=== PATIENT | female | born 1950 | race African-American/Black ===

== ENCOUNTER 2019-08-29 17:23 | Inpatient (IN) ==
[2019-08-29 19:02] LABS: Basophils % 0.6 % (0.0-0.8); Eosinophils % 0.5 % (0.00-10.9); Hematocrit 19.6 VOL% (35.7-47.0); Immature Granulocytes % 0.8 %; Immature Granulocytes Absolute 0.05 #; Lymphocytes % 16.6 % (21.3-54.2); Mean Corpuscular HGB Conc 29.1 GM/DL (32-36); Mean Corpuscular Volume 83.4 FL (87-102); Mean Platelet Volume 8.7 FL (9.6-12.0); Monocytes % 9.7 % (1.7-12.7); Neutrophils % 71.8 % (38.7-73.9); Platelet Count 396 T/CUMM (130-400); Red Blood Count 2.35 MC/CUMM (3.8-5.5); Red Cell Distribution Width 15.9 % (9.3-17.3); White Blood Count 6.2 T/CUMM (4-12)
[2019-08-29 19:06] LABS: Hemoglobin 5.7 GM/DL (12.0-16.0)
[2019-08-29 19:15] LABS: Alanine Aminotransferase 15 U/L (13-56); Albumin 3.7 G/DL (3.4-5.0); Alkaline Phosphatase 53 U/L (45-117); Aspartate Amino Transferase 13 U/L (0-37); Bilirubin,Total < 0.39 MG/DL (0.2-1.0); Blood Urea Nitrogen 13 MG/DL (7-18); Calcium 8.7 MG/DL (8.5-10.1); Estimated Glom Filtration Rate 80 ML/MIN; Glucose 158 MG/DL (74-106); Osmolality,Calculated 264.7 MOS/KG (273-304); Total Protein 7.2 G/DL (6.4-8.3)
[2019-08-29] MEDS ORDERED: NICOTINE 21 MG/24 HR PATCH TRANSDERM PRN (20:10)
[2019-08-29] MEDS ORDERED: ACETAMINOPHEN 325 MG TABLET PO PRN (20:10)
[2019-08-29] MEDS ORDERED: diphenhydrAMINE CAP 25 MG CAPSULE PO PRN (20:10)
[2019-08-29] MEDS ORDERED: traZODone 50 MG TABLET PO PRN (20:10)
[2019-08-29] MEDS ORDERED: ONDANSETRON 4 MG/2 ML VIAL IV PRN (20:10)
[2019-08-29] MEDS ORDERED: SODIUM CHLORIDE 0.9% 1,000 ML IV PRN (20:10)
[2019-08-29 20:36] LABS: Basophils % 0.6 % (0.0-0.8); Eosinophils % 0.5 % (0.00-10.9); Hematocrit 19.9 VOL% (35.7-47.0); Immature Granulocytes % 1.4 %; Immature Granulocytes Absolute 0.09 #; Lymphocytes # 1.1 10*3/uL (1.4-4.0); Lymphocytes % 17.1 % (21.3-54.2); Mean Corpuscular HGB Conc 29.1 GM/DL (32-36); Mean Corpuscular Volume 84.7 FL (87-102); Mean Platelet Volume 9.1 FL (9.6-12.0); Monocytes % 9.5 % (1.7-12.7); Neutrophils % 70.9 % (38.7-73.9); Platelet Count 425 T/CUMM (130-400); Red Blood Count 2.35 MC/CUMM (3.8-5.5); Red Cell Distribution Width 15.9 % (9.3-17.3); White Blood Count 6.4 T/CUMM (4-12)
[2019-08-29 20:38] LABS: Hemoglobin 5.8 GM/DL (12.0-16.0)
[2019-08-29 20:39] LABS: Folate 11.3 NG/ML (5.4-24.0); Vitamin B12 267 PG/ML (211-911)
[2019-08-29] MEDS ORDERED: IRON SUCROSE 300 MG in SODIUM CHLORIDE 0.9% 100 ML IV ONE (22:00)
[2019-08-29 22:12] LABS: Sedimentation Rate-Westergren 36 MM/HR (0-30)
[2019-08-29] MEDS: PANTOPRAZOLE 40 MG VIAL IV SCH (22:37)
[2019-08-29] MEDS: SODIUM CHLORIDE 0.9% 1,000 ML IV SCH (22:37)
[2019-08-30 05:32] LABS: Basophils % 0.7 % (0.0-0.8); Eosinophils % 0.7 % (0.00-10.9); Hematocrit 19.4 VOL% (35.7-47.0); Immature Granulocytes % 0.4 %; Immature Granulocytes Absolute 0.02 #; Lymphocytes # 1.1 10*3/uL (1.4-4.0); Lymphocytes % 19.4 % (21.3-54.2); Mean Corpuscular HGB Conc 29.4 GM/DL (32-36); Mean Corpuscular Volume 83.3 FL (87-102); Neutrophils % 65.8 % (38.7-73.9); Platelet Count 395 T/CUMM (130-400); Red Blood Count 2.33 MC/CUMM (3.8-5.5); Red Cell Distribution Width 15.7 % (9.3-17.3); White Blood Count 5.6 T/CUMM (4-12)
[2019-08-30 05:39] LABS: Hemoglobin 5.7 GM/DL (12.0-16.0)
[2019-08-30 08:23] LABS: Hematocrit 22.9 VOL% (35.7-47.0); Hemoglobin 7.1 GM/DL (12.0-16.0)
[2019-08-30 08:26] LABS: Hemoglobin A1 (Alkaline) 97.7 % (96.5-98.5); Hemoglobin A2 (Alkaline) 2.3 % (1.5-3.5)
[2019-08-30] MEDS: PANTOPRAZOLE 40 MG VIAL IV SCH ×2 (09:39→21:29)
[2019-08-30] MEDS: SODIUM CHLORIDE 0.9% 1,000 ML IV SCH ×2 (10:30→21:54)
[2019-08-30] MEDS ORDERED: clonazePAM 0.5 MG TABLET PO PRN (14:43)
[2019-08-30] MEDS ORDERED: DEXTROSE 50% 25 GM/50 ML VIAL IV PRN (14:43)
[2019-08-30] MEDS: amLODIPine 10 MG TABLET PO SCH (15:33)
[2019-08-30] MEDS: INSULIN REGULAR 100 UNIT/ML SUBCUT SCH ×2 (16:14→21:32)
[2019-08-30] MEDS: FERROUS SULFATE 325 MG TABLET PO SCH (16:37)
[2019-08-30] MEDS ORDERED: SIMVASTATIN 20 MG TABLET PO SCH (21:00)
[2019-08-30] MEDS: lisinopriL 20 MG TABLET PO SCH (21:28)
[2019-08-30] MEDS: DOXAZOSIN 4 MG TABLET PO SCH (21:29)
[2019-08-30] MEDS: ASCORBIC ACID 500 MG TABLET PO SCH (21:42)
[2019-08-31] MEDS: SODIUM CHLORIDE 0.9% 1,000 ML IV SCH ×2 (02:27→09:11)
[2019-08-31] MEDS: INSULIN REGULAR 100 UNIT/ML SUBCUT SCH ×3 (07:32→17:02)
[2019-08-31] MEDS: lisinopriL 20 MG TABLET PO SCH (09:00)
[2019-08-31] MEDS: DOXAZOSIN 4 MG TABLET PO SCH (09:00)
[2019-08-31] MEDS: PANTOPRAZOLE 40 MG VIAL IV SCH (09:01)
[2019-08-31] MEDS: amLODIPine 10 MG TABLET PO SCH (09:01)
[2019-08-31] MEDS: FERROUS SULFATE 325 MG TABLET PO SCH ×2 (09:01→17:07)
[2019-08-31] MEDS: ASCORBIC ACID 500 MG TABLET PO SCH (09:01)
[2019-08-31 09:43] LABS: Basophils # 0.1 10*3/uL (0.0-0.2); Basophils % 1.1 % (0.0-0.8); Eosinophils # 0.1 10*3/uL (0.0-0.87); Eosinophils % 2.1 % (0.00-10.9); Hemoglobin 7.5 GM/DL (12.0-16.0); Immature Granulocytes % 0.7 %; Immature Granulocytes Absolute 0.04 #; Lymphocytes # 1.3 10*3/uL (1.4-4.0); Mean Corpuscular Volume 84.5 FL (87-102); Mean Platelet Volume 8.5 FL (9.6-12.0); Monocytes % 16.9 % (1.7-12.7); Neutrophils % 57.2 % (38.7-73.9); Platelet Count 362 T/CUMM (130-400); Red Blood Count 2.96 MC/CUMM (3.8-5.5); Red Cell Distribution Width 15.9 % (9.3-17.3); White Blood Count 5.7 T/CUMM (4-12)
[2019-08-31 10:04] LABS: Alanine Aminotransferase 14 U/L (13-56); Albumin 3.6 G/DL (3.4-5.0); Alkaline Phosphatase 53 U/L (45-117); Aspartate Amino Transferase 15 U/L (0-37); Bilirubin,Total < 0.39 MG/DL (0.2-1.0); Blood Urea Nitrogen 7 MG/DL (7-18); Calcium 8.5 MG/DL (8.5-10.1); Estimated Glom Filtration Rate 80 ML/MIN; Glucose 147 MG/DL (74-106); Osmolality,Calculated 273.8 MOS/KG (273-304); Total Protein 6.8 G/DL (6.4-8.3)
[2019-08-31 10:13] LABS: Eosinophils 6 % (0-10); Hypochromasia 1+; Lymphocytes 26 % (20-55); Nucleated Red Blood Cells 1 (0-5); Platelet Estimate Adequate; Segmented Neutrophils 58 % (50-85); Total Cells Counted 100
[2019-08-31 15:24] VITALS: BP 131/42
== END 2019-08-31 17:32 | disposition home or self-care (01) | DRG 812 ==
LOC: N.EDINP 17:23 → N.ED 17:23 → N.EDINP 21:06 → N.2W 21:11 → SUATTDRO 08-30 13:48 → N.2E 08-30 14:42
PROVIDERS: ADMIT Internal Medicine Cardiovascular Disease; ATTEND Internal Medicine Nephrology

== ENCOUNTER 2020-05-28 15:20 | Inpatient (IN) ==
[2020-05-28 18:03] LABS: Basophils # 0.1 10*3/uL (0.0-0.2); Basophils % 0.7 % (0.0-0.8); Eosinophils % 0.1 % (0.00-10.9); Hematocrit 18.8 VOL% (35.7-47.0); Immature Granulocytes % 0.7 %; Immature Granulocytes Absolute 0.05 #; Mean Corpuscular HGB Conc 31.4 GM/DL (32-36); Mean Corpuscular Volume 92.6 FL (87-102); Monocytes % 10.2 % (1.7-12.7); Neutrophils % 75.3 % (38.7-73.9); Platelet Count 406 T/CUMM (130-400); Red Blood Count 2.03 MC/CUMM (3.8-5.5); Red Cell Distribution Width 15.1 % (9.3-17.3); White Blood Count 7.5 T/CUMM (4-12)
[2020-05-28 18:15] LABS: Hemoglobin 5.9 GM/DL (12.0-16.0)
[2020-05-28 18:22] LABS: Alanine Aminotransferase 12 U/L (13-56); Albumin 3.2 G/DL (3.4-5.0); Alkaline Phosphatase 63 U/L (45-117); Aspartate Amino Transferase 9 U/L (0-37); Bilirubin,Total < 0.39 MG/DL (0.2-1.0); Blood Urea Nitrogen 10 MG/DL (7-18); Calcium 8.9 MG/DL (8.5-10.1); Estimated Glom Filtration Rate 68 ML/MIN; Glucose 169 MG/DL (74-106); INR 1.1; Osmolality,Calculated 272.1 MOS/KG (273-304); PT Patient Result 11.4 SECS (9.8-11.9); Total Protein 6.7 G/DL (6.4-8.3)
[2020-05-28] MEDS ORDERED: ACETAMINOPHEN 325 MG TABLET PO PRN (19:26)
[2020-05-28] MEDS ORDERED: GLUCAGON 1 MG VIAL IM PRN (19:26)
[2020-05-28] MEDS ORDERED: DEXTROSE 50% 25 GM/50 ML VIAL IV PRN (19:26)
[2020-05-28] MEDS ORDERED: SODIUM CHLORIDE 0.9% 1,000 ML IV PRN (19:28)
[2020-05-28] MEDS ORDERED: SODIUM CHLORIDE 0.9% 1,000 ML IV SCH (19:30)
[2020-05-28] MEDS ORDERED: DICLOFENAC 1% GEL 100 GM TUBE TOP PRN (19:31)
[2020-05-28] MEDS ORDERED: clonazePAM 0.5 MG TABLET PO PRN (19:31)
[2020-05-28] MEDS: PANTOPRAZOLE 40 MG VIAL IV SCH (22:47)
[2020-05-28] MEDS: POTASSIUM CHLORIDE 20 MEQ TABLET PO SCH (22:47)
[2020-05-28] MEDS: hydrALAZINE 25 MG TABLET PO SCH (22:47)
[2020-05-28] MEDS: INSULIN REGULAR 100 UNIT/ML SUBCUT SCH (23:07)
[2020-05-28] MEDS: ASCORBIC ACID 500 MG TABLET PO SCH (23:25)
[2020-05-28] MEDS: ESCITALOPRAM 10 MG TABLET PO SCH (23:26)
[2020-05-28] MEDS: DOXAZOSIN 4 MG TABLET PO SCH (23:26)
[2020-05-29] MEDS: SIMVASTATIN 20 MG TABLET PO SCH ×2 (01:49→21:22)
[2020-05-29] MEDS: lisinopriL 20 MG TABLET PO SCH ×3 (01:53→21:22)
[2020-05-29 05:47] LABS: Hematocrit 22.3 VOL% (35.7-47.0); Hemoglobin 7.1 GM/DL (12.0-16.0)
[2020-05-29] MEDS ORDERED: SODIUM CHLORIDE 0.9% 1,000 ML IV PRN (05:56)
[2020-05-29] MEDS: INSULIN REGULAR 100 UNIT/ML SUBCUT SCH ×4 (10:00→19:13)
[2020-05-29] MEDS: FERROUS SULFATE 325 MG TABLET PO SCH ×3 (10:01→16:47)
[2020-05-29] MEDS: FUROSEMIDE 40 MG TABLET PO SCH (10:01)
[2020-05-29] MEDS: amLODIPine 10 MG TABLET PO SCH (10:01)
[2020-05-29] MEDS: hydrALAZINE 25 MG TABLET PO SCH ×3 (10:01→21:22)
[2020-05-29] MEDS: ASCORBIC ACID 500 MG TABLET PO SCH ×3 (10:01→21:22)
[2020-05-29] MEDS: CALCIUM (CARBONATE)/VITAMIN D 500 MG-200 UNIT TABLET PO SCH (10:01)
[2020-05-29] MEDS: DOXAZOSIN 4 MG TABLET PO SCH ×2 (10:01→21:22)
[2020-05-29] MEDS: POTASSIUM CHLORIDE 20 MEQ TABLET PO SCH ×2 (10:01→21:22)
[2020-05-29] MEDS: PANTOPRAZOLE 40 MG VIAL IV SCH ×2 (10:02→21:22)
[2020-05-29 10:03] LABS: Hematocrit 23.4 VOL% (35.7-47.0); Hemoglobin 7.4 GM/DL (12.0-16.0)
[2020-05-29 15:04] LABS: Hematocrit 26.3 VOL% (35.7-47.0); Hemoglobin 8.4 GM/DL (12.0-16.0)
[2020-05-29 19:36] LABS: Hematocrit 26.8 VOL% (35.7-47.0); Hemoglobin 8.5 GM/DL (12.0-16.0)
[2020-05-29] MEDS: ESCITALOPRAM 10 MG TABLET PO SCH (21:22)
[2020-05-30 06:50] LABS: Basophils % 0.6 % (0.0-0.8); Eosinophils # 0.1 10*3/uL (0.0-0.87); Eosinophils % 2.3 % (0.00-10.9); Hematocrit 26.6 VOL% (35.7-47.0); Hemoglobin 8.7 GM/DL (12.0-16.0); Immature Granulocytes % 0.3 %; Immature Granulocytes Absolute 0.02 #; Lymphocytes # 1.1 10*3/uL (1.4-4.0); Lymphocytes % 17.2 % (21.3-54.2); Mean Corpuscular HGB Conc 32.7 GM/DL (32-36); Mean Corpuscular Volume 87.2 FL (87-102); Mean Platelet Volume 8.7 FL (9.6-12.0); Monocytes % 12.9 % (1.7-12.7); Neutrophils % 66.7 % (38.7-73.9); Platelet Count 383 T/CUMM (130-400); Red Blood Count 3.05 MC/CUMM (3.8-5.5); Red Cell Distribution Width 15.8 % (9.3-17.3); White Blood Count 6.2 T/CUMM (4-12)
[2020-05-30 07:13] LABS: % Iron Saturation 6.5 % (18-50); Calcium 8.6 MG/DL (8.5-10.1); Osmolality,Calculated 273.7 MOS/KG (273-304)
[2020-05-30 07:23] LABS: Folate 8.4 NG/ML (5.4-24.0)
[2020-05-30] MEDS: PANTOPRAZOLE 40 MG VIAL IV SCH ×2 (08:44→21:28)
[2020-05-30] MEDS: hydrALAZINE 25 MG TABLET PO SCH ×3 (08:46→21:28)
[2020-05-30] MEDS: CALCIUM (CARBONATE)/VITAMIN D 500 MG-200 UNIT TABLET PO SCH (08:46)
[2020-05-30] MEDS: FUROSEMIDE 40 MG TABLET PO SCH (08:47)
[2020-05-30] MEDS: FERROUS SULFATE 325 MG TABLET PO SCH ×3 (08:47→16:44)
[2020-05-30] MEDS: POTASSIUM CHLORIDE 20 MEQ TABLET PO SCH ×2 (08:47→21:29)
[2020-05-30] MEDS: ASCORBIC ACID 500 MG TABLET PO SCH ×3 (08:47→21:28)
[2020-05-30] MEDS: lisinopriL 20 MG TABLET PO SCH ×2 (08:48→21:27)
[2020-05-30] MEDS: DOXAZOSIN 4 MG TABLET PO SCH ×2 (08:48→21:28)
[2020-05-30] MEDS: amLODIPine 10 MG TABLET PO SCH (08:48)
[2020-05-30] MEDS: INSULIN REGULAR 100 UNIT/ML SUBCUT SCH ×4 (09:41→21:28)
[2020-05-30] MEDS: SIMVASTATIN 20 MG TABLET PO SCH (21:28)
[2020-05-30] MEDS: ESCITALOPRAM 10 MG TABLET PO SCH (21:28)
[2020-05-30] MEDS: POTASSIUM CHLORIDE 20 MEQ TABLET PO PRN ×2 (21:29→23:02)
[2020-05-31] MEDS: POTASSIUM CHLORIDE 20 MEQ TABLET PO PRN (02:30)
[2020-05-31 05:47] LABS: Basophils % 0.6 % (0.0-0.8); Eosinophils # 0.1 10*3/uL (0.0-0.87); Eosinophils % 2.1 % (0.00-10.9); Hematocrit 26.2 VOL% (35.7-47.0); Hemoglobin 8.3 GM/DL (12.0-16.0); Immature Granulocytes % 0.4 %; Immature Granulocytes Absolute 0.03 #; Lymphocytes # 1.4 10*3/uL (1.4-4.0); Lymphocytes % 20.2 % (21.3-54.2); Mean Corpuscular HGB Conc 31.7 GM/DL (32-36); Mean Corpuscular Volume 90.3 FL (87-102); Mean Platelet Volume 9.1 FL (9.6-12.0); Monocytes % 14.1 % (1.7-12.7); Neutrophils % 62.6 % (38.7-73.9); Platelet Count 415 T/CUMM (130-400); Red Cell Distribution Width 15.6 % (9.3-17.3); White Blood Count 6.8 T/CUMM (4-12)
[2020-05-31 06:21] LABS: Calcium 8.7 MG/DL (8.5-10.1); Osmolality,Calculated 273.7 MOS/KG (273-304)
[2020-05-31] MEDS: POTASSIUM CHLORIDE 20 MEQ TABLET PO SCH ×2 (08:53→21:27)
[2020-05-31] MEDS: lisinopriL 20 MG TABLET PO SCH ×2 (08:53→21:27)
[2020-05-31] MEDS: hydrALAZINE 25 MG TABLET PO SCH ×3 (08:53→21:28)
[2020-05-31] MEDS: DOXAZOSIN 4 MG TABLET PO SCH ×2 (08:53→21:28)
[2020-05-31] MEDS: PANTOPRAZOLE 40 MG VIAL IV SCH ×2 (08:54→22:50)
[2020-05-31] MEDS: amLODIPine 10 MG TABLET PO SCH (08:54)
[2020-05-31] MEDS: CALCIUM (CARBONATE)/VITAMIN D 500 MG-200 UNIT TABLET PO SCH (08:54)
[2020-05-31] MEDS: ASCORBIC ACID 500 MG TABLET PO SCH ×3 (08:54→21:28)
[2020-05-31] MEDS: FERROUS SULFATE 325 MG TABLET PO SCH (08:54)
[2020-05-31] MEDS: FUROSEMIDE 40 MG TABLET PO SCH (08:54)
[2020-05-31] MEDS: INSULIN REGULAR 100 UNIT/ML SUBCUT SCH ×4 (08:57→21:26)
[2020-05-31] MEDS: SIMVASTATIN 20 MG TABLET PO SCH (21:28)
[2020-05-31] MEDS: ESCITALOPRAM 10 MG TABLET PO SCH (21:28)
[2020-06-01 06:17] LABS: Basophils % 0.5 % (0.0-0.8); Eosinophils # 0.1 10*3/uL (0.0-0.87); Eosinophils % 1.9 % (0.00-10.9); Hemoglobin 8.4 GM/DL (12.0-16.0); Immature Granulocytes % 0.3 %; Immature Granulocytes Absolute 0.02 #; Lymphocytes % 17.5 % (21.3-54.2); Mean Corpuscular HGB Conc 31.1 GM/DL (32-36); Mean Corpuscular Volume 89.1 FL (87-102); Mean Platelet Volume 8.7 FL (9.6-12.0); Monocytes % 12.8 % (1.7-12.7); Platelet Count 355 T/CUMM (130-400); Red Blood Count 3.03 MC/CUMM (3.8-5.5); Red Cell Distribution Width 15.7 % (9.3-17.3); White Blood Count 5.8 T/CUMM (4-12)
[2020-06-01 06:40] LABS: Calcium 8.9 MG/DL (8.5-10.1); Osmolality,Calculated 275.7 MOS/KG (273-304)
[2020-06-01] MEDS ORDERED: LIDOCAINE 2% 5 ML VIAL ONE (09:00)
[2020-06-01] MEDS ORDERED: propofoL 200 MG/20 ML VIAL IV ONE (09:00)
[2020-06-01] MEDS: INSULIN REGULAR 100 UNIT/ML SUBCUT SCH ×4 (10:01→21:55)
[2020-06-01] MEDS ORDERED: SODIUM CHLORIDE 0.9% 1,000 ML IV SCH (12:00)
[2020-06-01] MEDS: hydrALAZINE 25 MG TABLET PO SCH ×3 (12:34→21:55)
[2020-06-01] MEDS ORDERED: GLUCAGON 1 MG VIAL IM PRN (14:19)
[2020-06-01] MEDS ORDERED: DEXTROSE 50% 25 GM/50 ML VIAL IV PRN (14:19)
[2020-06-01] MEDS: FUROSEMIDE 40 MG TABLET PO SCH (15:59)
[2020-06-01] MEDS: amLODIPine 10 MG TABLET PO SCH (16:00)
[2020-06-01] MEDS: DOXAZOSIN 4 MG TABLET PO SCH ×2 (16:00→21:53)
[2020-06-01] MEDS: lisinopriL 20 MG TABLET PO SCH ×2 (16:01→21:53)
[2020-06-01] MEDS: ASCORBIC ACID 500 MG TABLET PO SCH ×3 (16:01→21:54)
[2020-06-01] MEDS: POTASSIUM CHLORIDE 20 MEQ TABLET PO SCH ×2 (16:13→21:53)
[2020-06-01] MEDS: CALCIUM (CARBONATE)/VITAMIN D 500 MG-200 UNIT TABLET PO SCH (16:14)
[2020-06-01] MEDS: PANTOPRAZOLE 40 MG VIAL IV SCH ×2 (16:15→21:54)
[2020-06-01] MEDS: ESCITALOPRAM 10 MG TABLET PO SCH (21:53)
[2020-06-01] MEDS: SIMVASTATIN 20 MG TABLET PO SCH (21:53)
[2020-06-02 06:02] LABS: Basophils % 0.7 % (0.0-0.8); Eosinophils # 0.1 10*3/uL (0.0-0.87); Eosinophils % 1.8 % (0.00-10.9); Hematocrit 27.2 VOL% (35.7-47.0); Hemoglobin 8.4 GM/DL (12.0-16.0); Immature Granulocytes % 0.5 %; Immature Granulocytes Absolute 0.03 #; Lymphocytes % 18.3 % (21.3-54.2); Mean Corpuscular HGB Conc 30.9 GM/DL (32-36); Mean Corpuscular Volume 91.6 FL (87-102); Mean Platelet Volume 8.8 FL (9.6-12.0); Monocytes % 12.5 % (1.7-12.7); Neutrophils % 66.2 % (38.7-73.9); Platelet Count 376 T/CUMM (130-400); Red Blood Count 2.97 MC/CUMM (3.8-5.5); Red Cell Distribution Width 15.3 % (9.3-17.3); White Blood Count 5.5 T/CUMM (4-12)
[2020-06-02] MEDS: INSULIN REGULAR 100 UNIT/ML SUBCUT SCH (07:46)
[2020-06-02 07:58] VITALS: BP 158/69
[2020-06-02] MEDS: CALCIUM (CARBONATE)/VITAMIN D 500 MG-200 UNIT TABLET PO SCH (09:08)
[2020-06-02] MEDS: ASCORBIC ACID 500 MG TABLET PO SCH (09:08)
[2020-06-02] MEDS: hydrALAZINE 25 MG TABLET PO SCH (09:08)
[2020-06-02] MEDS: DOXAZOSIN 4 MG TABLET PO SCH (09:08)
[2020-06-02] MEDS: POTASSIUM CHLORIDE 20 MEQ TABLET PO SCH (09:09)
[2020-06-02] MEDS: FUROSEMIDE 40 MG TABLET PO SCH (09:09)
[2020-06-02] MEDS: amLODIPine 10 MG TABLET PO SCH (09:09)
[2020-06-02] MEDS: lisinopriL 20 MG TABLET PO SCH (09:09)
[2020-06-02] MEDS: PANTOPRAZOLE 40 MG VIAL IV SCH (09:11)
== END 2020-06-02 12:27 | disposition home or self-care (01) | DRG 378 ==
LOC: N.ED 15:20 → N.EDINP 19:26 → SUATTDRO 19:26 → N.TELEN 05-29 00:52
PROVIDERS: ADMIT Internal Medicine; ATTEND Internal Medicine

== ENCOUNTER 2020-07-30 16:18 | Inpatient (IN) ==
[2020-07-30] MEDS ORDERED: PANTOPRAZOLE 40 MG VIAL IV STA (16:35)
[2020-07-30] MEDS ORDERED: ONDANSETRON 4 MG/2 ML VIAL IV STA (16:35)
[2020-07-30 16:53] LABS: Basophils % 0.2 % (0.0-0.8); Immature Granulocytes % 0.4 %; Immature Granulocytes Absolute 0.02 #; Lymphocytes # 0.6 10*3/uL (1.4-4.0); Lymphocytes % 10.9 % (21.3-54.2); Mean Corpuscular HGB Conc 32.6 GM/DL (32-36); Mean Corpuscular Volume 95.2 FL (87-102); Monocytes % 8.4 % (1.7-12.7); Neutrophils % 80.1 % (38.7-73.9); Platelet Count 341 T/CUMM (130-400); Red Blood Count 1.87 MC/CUMM (3.8-5.5); Red Cell Distribution Width 17.2 % (9.3-17.3); White Blood Count 5.3 T/CUMM (4-12)
[2020-07-30 16:56] LABS: Hematocrit 17.8 VOL% (35.7-47.0); Hemoglobin 5.8 GM/DL (12.0-16.0)
[2020-07-30 17:02] LABS: PT Patient Result 11.1 SECS (9.8-11.9)
[2020-07-30] MEDS ORDERED: DICLOFENAC 1% GEL 100 GM TUBE TOP PRN (17:07)
[2020-07-30] MEDS ORDERED: ACETAMINOPHEN 325 MG TABLET PO PRN (17:07)
[2020-07-30] MEDS ORDERED: SODIUM CHLORIDE 0.9% 1,000 ML IV PRN (17:09)
[2020-07-30 17:17] LABS: Alanine Aminotransferase 10 U/L (13-56); Albumin 3.1 G/DL (3.4-5.0); Alkaline Phosphatase 57 U/L (45-117); Aspartate Amino Transferase 12 U/L (0-37); Bilirubin,Total < 0.39 MG/DL (0.2-1.0); Blood Urea Nitrogen 11 MG/DL (7-18); Calcium 8.6 MG/DL (8.5-10.1); Estimated Glom Filtration Rate 60 ML/MIN; Glucose 159 MG/DL (74-106); Osmolality,Calculated 267.4 MOS/KG (273-304); Total Protein 6.2 G/DL (6.4-8.3)
[2020-07-30 18:12] LABS: Bilirubin,Urine Negative (Negative); Blood, Urine Negative (Negative); Glucose,Urine (UA) Negative (Negative); Ketones,Urine Negative (Negative); Mucus,Urine Occasional /LPF (Occasional); Nitrite,Urine Negative (Negative); Protein,Urine Negative; RBC,Urine 2 /HPF (0-4); Squamous Epithelial Cell,Urine Occasional /HPF (0-10); Urine Appearance CLEAR (Clear); Urine Color Straw (Yellow); Urine Specific Gravity 1.003 (1.001-1.035); Urine Urobilinogen < 2.0 EU/DL (0.2-1.0); WBC,Urine <1 /HPF (0-6)
[2020-07-30] MEDS ORDERED: FUROSEMIDE 20 MG/2 ML VIAL IV PRN (20:30)
[2020-07-30] MEDS ORDERED: INFLUENZA VIRUS VACCINE 0.5 ML SYRINGE IM ONE (21:00)
[2020-07-30] MEDS: PANTOPRAZOLE 40 MG VIAL IV SCH (22:22)
[2020-07-30] MEDS: SIMVASTATIN 20 MG TABLET PO SCH (22:23)
[2020-07-30] MEDS: ESCITALOPRAM 10 MG TABLET PO SCH (22:23)
[2020-07-30] MEDS: ASCORBIC ACID 500 MG TABLET PO SCH (22:23)
[2020-07-31] MEDS: lisinopriL 20 MG TABLET PO SCH ×3 (00:39→21:20)
[2020-07-31] MEDS: DOXAZOSIN 4 MG TABLET PO SCH ×3 (00:39→21:20)
[2020-07-31 01:10] LABS: Hematocrit 21.9 VOL% (35.7-47.0); Hemoglobin 7.3 GM/DL (12.0-16.0)
[2020-07-31 05:22] LABS: Basophils % 0.6 % (0.0-0.8); Eosinophils % 0.7 % (0.00-10.9); Hematocrit 20.6 VOL% (35.7-47.0); Hemoglobin 6.8 GM/DL (12.0-16.0); Immature Granulocytes % 0.4 %; Immature Granulocytes Absolute 0.02 #; Lymphocytes # 0.9 10*3/uL (1.4-4.0); Lymphocytes % 16.1 % (21.3-54.2); Mean Corpuscular Volume 91.6 FL (87-102); Mean Platelet Volume 9.2 FL (9.6-12.0); Monocytes % 11.4 % (1.7-12.7); Neutrophils % 70.8 % (38.7-73.9); Platelet Count 314 T/CUMM (130-400); Red Blood Count 2.25 MC/CUMM (3.8-5.5); Red Cell Distribution Width 17.4 % (9.3-17.3); White Blood Count 5.5 T/CUMM (4-12)
[2020-07-31 05:57] LABS: Albumin 2.8 G/DL (3.4-5.0); Calcium 8.5 MG/DL (8.5-10.1); Total Protein 5.5 G/DL (6.4-8.3)
[2020-07-31] MEDS ORDERED: SODIUM CHLORIDE 0.9% 1,000 ML IV PRN (07:03)
[2020-07-31] MEDS ORDERED: MAGNESIUM SULF RIDER 4 GM in PREMIX 1 EACH IV PRN (07:04)
[2020-07-31] MEDS ORDERED: POTASSIUM CHLORIDE RIDER 10 MEQ in PREMIX 1 EACH IV PRN (07:04)
[2020-07-31] MEDS ORDERED: MAGNESIUM SULF RIDER 2 GM in PREMIX 1 EACH IV PRN (07:04)
[2020-07-31] MEDS ORDERED: POTASSIUM CHLORIDE 20 MEQ TABLET PO SCH (09:00)
[2020-07-31] MEDS ORDERED: IRON SUCROSE 300 MG in SODIUM CHLORIDE 0.9% 100 ML IV SCH (09:00)
[2020-07-31] MEDS ORDERED: NON-FORMULARY MEDICATION (Omeprazole 40 mg capsule,delayed release(DR/EC)) PO SCH (09:00)
[2020-07-31] MEDS: PANTOPRAZOLE 40 MG VIAL IV SCH ×2 (10:28→21:18)
[2020-07-31] MEDS: metFORMIN 500 MG TABLET PO SCH (15:47)
[2020-07-31] MEDS: FERROUS SULFATE 325 MG TABLET PO SCH ×2 (15:47→16:12)
[2020-07-31] MEDS: PIOGLITAZONE 45 MG TABLET PO SCH (15:47)
[2020-07-31] MEDS: ASCORBIC ACID 500 MG TABLET PO SCH ×3 (15:48→21:18)
[2020-07-31] MEDS: amLODIPine 10 MG TABLET PO SCH (15:48)
[2020-07-31] MEDS: FUROSEMIDE 40 MG TABLET PO SCH (15:48)
[2020-07-31] MEDS ORDERED: DEXTROSE 50% 25 GM/50 ML VIAL IV PRN (15:49)
[2020-07-31] MEDS ORDERED: GLUCAGON 1 MG VIAL IM PRN (15:49)
[2020-07-31] MEDS: INSULIN REGULAR 100 UNIT/ML SUBCUT SCH (17:48)
[2020-07-31] MEDS ORDERED: MONTELUKAST 10 MG TABLET PO SCH (21:00)
[2020-07-31] MEDS: DOCUSATE SODIUM 100 MG CAPSULE PO SCH (21:18)
[2020-07-31] MEDS: ESCITALOPRAM 10 MG TABLET PO SCH (21:18)
[2020-07-31] MEDS: POTASSIUM CHLORIDE 20 MEQ TABLET PO SCH (21:19)
[2020-07-31] MEDS: SIMVASTATIN 20 MG TABLET PO SCH (21:19)
[2020-08-01] MEDS: INSULIN REGULAR 100 UNIT/ML SUBCUT SCH ×2 (00:47→08:36)
[2020-08-01] MEDS: FLUTICASONE/SALMETEROL 100-50 DISKUS 14 DOSE INH SCH ×2 (00:48→08:37)
[2020-08-01 02:51] LABS: Basophils % 0.6 % (0.0-0.8); Eosinophils # 0.1 10*3/uL (0.0-0.87); Eosinophils % 1.1 % (0.00-10.9); Hematocrit 26.9 VOL% (35.7-47.0); Immature Granulocytes % 0.2 %; Immature Granulocytes Absolute 0.01 #; Lymphocytes # 0.9 10*3/uL (1.4-4.0); Lymphocytes % 17.4 % (21.3-54.2); Mean Corpuscular HGB Conc 33.8 GM/DL (32-36); Mean Corpuscular Volume 89.7 FL (87-102); Mean Platelet Volume 8.9 FL (9.6-12.0); Monocytes % 12.6 % (1.7-12.7); Neutrophils % 68.1 % (38.7-73.9); Platelet Count 288 T/CUMM (130-400); Red Cell Distribution Width 17.6 % (9.3-17.3); White Blood Count 5.3 T/CUMM (4-12)
[2020-08-01 02:58] LABS: Hemoglobin 9.1 GM/DL (12.0-16.0)
[2020-08-01 03:21] LABS: Albumin 2.9 G/DL (3.4-5.0); Bilirubin,Total 0.7 MG/DL (0.2-1.0); Calcium 8.4 MG/DL (8.5-10.1); Osmolality,Calculated 275.5 MOS/KG (273-304); Total Protein 5.3 G/DL (6.4-8.3)
[2020-08-01] MEDS ORDERED: LINACLOTIDE 145 MCG CAPSULE PO SCH (07:30)
[2020-08-01] MEDS: DOCUSATE SODIUM 100 MG CAPSULE PO SCH (08:26)
[2020-08-01] MEDS: amLODIPine 10 MG TABLET PO SCH (08:27)
[2020-08-01] MEDS: ASCORBIC ACID 500 MG TABLET PO SCH (08:27)
[2020-08-01] MEDS: POTASSIUM CHLORIDE 20 MEQ TABLET PO SCH (08:27)
[2020-08-01] MEDS: lisinopriL 20 MG TABLET PO SCH (08:29)
[2020-08-01] MEDS: metFORMIN 500 MG TABLET PO SCH (08:29)
[2020-08-01] MEDS: PIOGLITAZONE 45 MG TABLET PO SCH (08:29)
[2020-08-01] MEDS: DOXAZOSIN 4 MG TABLET PO SCH (08:29)
[2020-08-01] MEDS: FUROSEMIDE 40 MG TABLET PO SCH (08:30)
[2020-08-01 08:47] VITALS: BP 146/55
[2020-08-01] MEDS ORDERED: POLYETHYLENE GLYCOL POWDER 17 GM PACK PO SCH (09:00)
[2020-08-01] MEDS ORDERED: IRON SUCROSE 300 MG in SODIUM CHLORIDE 0.9% 100 ML IV ONE (10:00)
[2020-08-03] MEDS ORDERED: EXENATIDE MICROSPHERES 2 MG/0.65 ML SUBCUT SCH (09:00)
== END 2020-08-01 11:33 | disposition home or self-care (01) | DRG 812 ==
LOC: N.ED 16:18 → N.EDINP 17:22 → N.3E 20:03
PROVIDERS: ADMIT Hospitalist; ATTEND Hospitalist

== ENCOUNTER 2020-08-17 15:19 | Inpatient (IN) ==
[2020-08-17 15:55] LABS: Basophils % 0.6 % (0.0-0.8); Eosinophils % 0.4 % (0.00-10.9); Hematocrit 24.5 VOL% (35.7-47.0); Hemoglobin 7.9 GM/DL (12.0-16.0); Immature Granulocytes % 0.4 %; Immature Granulocytes Absolute 0.02 #; Lymphocytes # 0.8 10*3/uL (1.4-4.0); Lymphocytes % 14.3 % (21.3-54.2); Mean Corpuscular HGB Conc 32.2 GM/DL (32-36); Mean Corpuscular Volume 91.4 FL (87-102); Mean Platelet Volume 9.7 FL (9.6-12.0); Monocytes % 11.1 % (1.7-12.7); Neutrophils % 73.2 % (38.7-73.9); Platelet Count 396 T/CUMM (130-400); Red Blood Count 2.68 MC/CUMM (3.8-5.5); Red Cell Distribution Width 15.9 % (9.3-17.3); White Blood Count 5.3 T/CUMM (4-12)
[2020-08-17 16:05] LABS: PT Patient Result 10.9 SECS (9.8-11.9); Partial Thromboplastin Time 28.1 SECS (23.9-33.8)
[2020-08-17 16:10] LABS: Alanine Aminotransferase 14 U/L (13-56); Albumin 3.8 G/DL (3.4-5.0); Alkaline Phosphatase 69 U/L (45-117); Aspartate Amino Transferase 17 U/L (0-37); Bilirubin,Total < 0.39 MG/DL (0.2-1.0); Blood Urea Nitrogen 11 MG/DL (7-18); Calcium 8.9 MG/DL (8.5-10.1); Estimated Glom Filtration Rate 74 ML/MIN; Glucose 107 MG/DL (74-106); Total Protein 6.8 G/DL (6.4-8.3)
[2020-08-17] MEDS ORDERED: ONDANSETRON 4 MG/2 ML VIAL IV PRN (17:08)
[2020-08-17] MEDS ORDERED: GLUCAGON 1 MG VIAL IM PRN (17:08)
[2020-08-17] MEDS ORDERED: DEXTROSE 50% 25 GM/50 ML VIAL IV PRN (17:08)
[2020-08-17] MEDS ORDERED: ACETAMINOPHEN 325 MG TABLET PO PRN (17:08)
[2020-08-17] MEDS ORDERED: ESCITALOPRAM 10 MG TABLET PO PRN (18:25)
[2020-08-17] MEDS ORDERED: SODIUM CHLORIDE 0.9% 1,000 ML IV PRN (18:25)
[2020-08-17] MEDS ORDERED: POLYETHYLENE GLYCOL POWDER 17 GM PACK PO PRN (18:25)
[2020-08-17] MEDS: SIMVASTATIN 20 MG TABLET PO SCH (22:46)
[2020-08-17] MEDS: lisinopriL 20 MG TABLET PO SCH (22:46)
[2020-08-17] MEDS: ASCORBIC ACID 500 MG TABLET PO SCH (22:46)
[2020-08-17] MEDS: FERROUS SULFATE 325 MG TABLET PO SCH (22:46)
[2020-08-17] MEDS: DOXAZOSIN 4 MG TABLET PO SCH (22:49)
[2020-08-17] MEDS: PANTOPRAZOLE 40 MG VIAL IV SCH (22:54)
[2020-08-17] MEDS: INSULIN LISPRO 100 UNIT/ML SUBCUT SCH (22:54)
[2020-08-18] MEDS: POTASSIUM CHLORIDE 20 MEQ TABLET PO PRN ×5 (01:10→21:43)
[2020-08-18 07:12] LABS: Basophils % 0.9 % (0.0-0.8); Eosinophils # 0.1 10*3/uL (0.0-0.87); Eosinophils % 1.1 % (0.00-10.9); Hemoglobin 8.2 GM/DL (12.0-16.0); Immature Granulocytes % 0.2 %; Immature Granulocytes Absolute 0.01 #; Lymphocytes # 0.8 10*3/uL (1.4-4.0); Lymphocytes % 17.8 % (21.3-54.2); Mean Corpuscular HGB Conc 32.8 GM/DL (32-36); Mean Corpuscular Volume 88.7 FL (87-102); Mean Platelet Volume 9.4 FL (9.6-12.0); Monocytes % 13.3 % (1.7-12.7); Neutrophils % 66.7 % (38.7-73.9); Platelet Count 356 T/CUMM (130-400); Red Blood Count 2.82 MC/CUMM (3.8-5.5); Red Cell Distribution Width 15.9 % (9.3-17.3); White Blood Count 4.4 T/CUMM (4-12)
[2020-08-18] MEDS: PANTOPRAZOLE 40 MG VIAL IV SCH ×2 (08:25→20:18)
[2020-08-18] MEDS: FERROUS SULFATE 325 MG TABLET PO SCH ×3 (08:26→20:18)
[2020-08-18] MEDS: lisinopriL 20 MG TABLET PO SCH ×2 (08:26→20:18)
[2020-08-18] MEDS: amLODIPine 10 MG TABLET PO SCH (08:26)
[2020-08-18] MEDS: DOXAZOSIN 4 MG TABLET PO SCH ×2 (08:26→20:17)
[2020-08-18] MEDS: ASCORBIC ACID 500 MG TABLET PO SCH ×3 (08:26→20:18)
[2020-08-18] MEDS: INSULIN LISPRO 100 UNIT/ML SUBCUT SCH ×4 (08:50→20:26)
[2020-08-18] MEDS: SIMVASTATIN 20 MG TABLET PO SCH (20:18)
[2020-08-19 06:18] LABS: Basophils % 0.9 % (0.0-0.8); Eosinophils # 0.1 10*3/uL (0.0-0.87); Eosinophils % 1.6 % (0.00-10.9); Hematocrit 24.5 VOL% (35.7-47.0); Immature Granulocytes % 0.2 %; Immature Granulocytes Absolute 0.01 #; Lymphocytes # 0.9 10*3/uL (1.4-4.0); Lymphocytes % 21.5 % (21.3-54.2); Mean Corpuscular HGB Conc 32.7 GM/DL (32-36); Mean Corpuscular Volume 90.4 FL (87-102); Mean Platelet Volume 9.8 FL (9.6-12.0); Monocytes % 13.2 % (1.7-12.7); Neutrophils % 62.6 % (38.7-73.9); Platelet Count 374 T/CUMM (130-400); Red Blood Count 2.71 MC/CUMM (3.8-5.5); Red Cell Distribution Width 15.9 % (9.3-17.3); White Blood Count 4.4 T/CUMM (4-12)
[2020-08-19] MEDS: INSULIN LISPRO 100 UNIT/ML SUBCUT SCH ×4 (07:47→21:10)
[2020-08-19] MEDS: FERROUS SULFATE 325 MG TABLET PO SCH ×3 (10:07→21:10)
[2020-08-19] MEDS: ASCORBIC ACID 500 MG TABLET PO SCH ×3 (10:07→21:09)
[2020-08-19] MEDS: DOXAZOSIN 4 MG TABLET PO SCH ×2 (10:07→21:10)
[2020-08-19] MEDS: amLODIPine 10 MG TABLET PO SCH (10:07)
[2020-08-19] MEDS: lisinopriL 20 MG TABLET PO SCH ×2 (10:07→21:10)
[2020-08-19] MEDS: PANTOPRAZOLE 40 MG VIAL IV SCH ×2 (10:08→21:15)
[2020-08-19] MEDS: LACTATED RINGERS 1,000 ML IV SCH (11:53)
[2020-08-19] MEDS ORDERED: propofoL 200 MG/20 ML VIAL IV ONE (12:55)
[2020-08-19] MEDS ORDERED: LIDOCAINE 2% 5 ML VIAL ONE (12:55)
[2020-08-19] MEDS ORDERED: METOPROLOL TARTRATE 5 MG/5 ML VIAL IV ONE (13:07)
[2020-08-19] MEDS: SIMVASTATIN 20 MG TABLET PO SCH (21:10)
[2020-08-20 06:22] LABS: Basophils % 0.8 % (0.0-0.8); Eosinophils # 0.1 10*3/uL (0.0-0.87); Eosinophils % 2.2 % (0.00-10.9); Hematocrit 25.8 VOL% (35.7-47.0); Hemoglobin 8.3 GM/DL (12.0-16.0); Immature Granulocytes % 0.2 %; Immature Granulocytes Absolute 0.01 #; Lymphocytes # 1.1 10*3/uL (1.4-4.0); Lymphocytes % 21.6 % (21.3-54.2); Mean Corpuscular HGB Conc 32.2 GM/DL (32-36); Mean Corpuscular Volume 90.8 FL (87-102); Mean Platelet Volume 9.8 FL (9.6-12.0); Monocytes % 11.9 % (1.7-12.7); Neutrophils % 63.3 % (38.7-73.9); Platelet Count 401 T/CUMM (130-400); Red Blood Count 2.84 MC/CUMM (3.8-5.5); Red Cell Distribution Width 15.4 % (9.3-17.3); White Blood Count 5.1 T/CUMM (4-12)
[2020-08-20] MEDS: INSULIN LISPRO 100 UNIT/ML SUBCUT SCH ×4 (07:49→20:55)
[2020-08-20] MEDS: PANTOPRAZOLE 40 MG VIAL IV SCH ×2 (09:46→20:58)
[2020-08-20] MEDS: ASCORBIC ACID 500 MG TABLET PO SCH ×3 (09:46→20:54)
[2020-08-20] MEDS: lisinopriL 20 MG TABLET PO SCH ×2 (09:48→20:54)
[2020-08-20] MEDS: amLODIPine 10 MG TABLET PO SCH (09:48)
[2020-08-20] MEDS: FERROUS SULFATE 325 MG TABLET PO SCH ×3 (09:48→20:54)
[2020-08-20] MEDS: DOXAZOSIN 4 MG TABLET PO SCH ×2 (09:48→20:54)
[2020-08-20 10:09] LABS: Cancer Antigen 19-9 6.5 U/ML (0-37); Carcinoembryonic Antigen 0.6 NG/ML (0.0-5.0)
[2020-08-20] MEDS: SIMVASTATIN 20 MG TABLET PO SCH (20:54)
[2020-08-21] MEDS: INSULIN LISPRO 100 UNIT/ML SUBCUT SCH ×4 (08:06→22:49)
[2020-08-21] MEDS: ASCORBIC ACID 500 MG TABLET PO SCH ×3 (08:07→22:21)
[2020-08-21] MEDS: DOXAZOSIN 4 MG TABLET PO SCH ×2 (08:07→22:21)
[2020-08-21] MEDS: FERROUS SULFATE 325 MG TABLET PO SCH ×3 (08:07→22:21)
[2020-08-21] MEDS: lisinopriL 20 MG TABLET PO SCH ×2 (08:07→22:21)
[2020-08-21] MEDS: amLODIPine 10 MG TABLET PO SCH (08:07)
[2020-08-21] MEDS: LACTATED RINGERS 1,000 ML IV SCH ×2 (09:03→12:24)
[2020-08-21] MEDS: PANTOPRAZOLE 40 MG VIAL IV SCH ×2 (09:11→22:22)
[2020-08-21] MEDS: SIMVASTATIN 20 MG TABLET PO SCH (22:21)
[2020-08-22] MEDS: INSULIN LISPRO 100 UNIT/ML SUBCUT SCH ×2 (07:36→12:22)
[2020-08-22] MEDS: lisinopriL 20 MG TABLET PO SCH (08:15)
[2020-08-22] MEDS: DOXAZOSIN 4 MG TABLET PO SCH (08:15)
[2020-08-22] MEDS: FERROUS SULFATE 325 MG TABLET PO SCH ×2 (08:15→15:15)
[2020-08-22] MEDS: ASCORBIC ACID 500 MG TABLET PO SCH ×2 (08:16→15:15)
[2020-08-22] MEDS: amLODIPine 10 MG TABLET PO SCH (08:16)
[2020-08-22] MEDS: PANTOPRAZOLE 40 MG VIAL IV SCH (08:16)
[2020-08-22 08:49] LABS: Basophils % 0.5 % (0.0-0.8); Eosinophils # 0.1 10*3/uL (0.0-0.87); Eosinophils % 1.8 % (0.00-10.9); Hematocrit 28.9 VOL% (35.7-47.0); Hemoglobin 9.2 GM/DL (12.0-16.0); Immature Granulocytes % 0.2 %; Immature Granulocytes Absolute 0.01 #; Lymphocytes # 0.8 10*3/uL (1.4-4.0); Lymphocytes % 18.6 % (21.3-54.2); Mean Corpuscular HGB Conc 31.8 GM/DL (32-36); Mean Corpuscular Volume 90.3 FL (87-102); Mean Platelet Volume 9.3 FL (9.6-12.0); Monocytes % 10.3 % (1.7-12.7); Neutrophils % 68.6 % (38.7-73.9); Platelet Count 414 T/CUMM (130-400); Red Cell Distribution Width 15.2 % (9.3-17.3); White Blood Count 4.4 T/CUMM (4-12)
[2020-08-22 09:11] LABS: Calcium 8.8 MG/DL (8.5-10.1); Osmolality,Calculated 275.5 MOS/KG (273-304)
[2020-08-22 15:32] VITALS: BP 113/66
== END 2020-08-22 16:12 | disposition home or self-care (01) | DRG 815 ==
LOC: N.ED 15:19 → N.EDINP 17:06 → N.3E 20:10
PROVIDERS: ADMIT Family Medicine; ATTEND Family Medicine